=== PATIENT | female | born 1945 | race Caucasian/White ===

== ENCOUNTER 2019-06-09 08:32 | Emergency (ER) | payer MEDICARE, SELFPAY ==
--- NOTE | ~2019-06-09 | CT_ITS ---
EXAMINATION: CT chest wo con DATE: 06/09/2019 10:16 INDICATION: Shortness of breath TECHNIQUE: Computed tomography (CT) of the chest was performed without intravenous contrast. Addition al 3D reconstructions utilizing coronal maximum intensity projection (MIP) were performed. Automated exposure control and iterative reconstruction technique were employed. The dose-length product was 74 4.74 mGy-cm. COMPARISON: None FINDINGS: There are scattered mild linear atelectasis throughout both lungs along with scattered patchy regions of central and peripheral groundglass opacity throughout both lungs. No smooth septal line thickenin g to suggest pulmonary edema. No pleural effusion or pneumothorax. Heart size is normal. Atherosclero tic coronary artery calcifications. No pericardial effusion. Thoracic aorta is normal in caliber. No pathologically enlarged thoracic spondylosis. Cholelithiasis. 2 mm nonobstructing stone at a lower po le calyx of the left kidney. Mild lumbar dextroscoliosis with severe left-sided disc height loss with sclerotic degenerative endplate changes at L1-L2. Mild to moderate thoracic spondylosis. Severe righ t and moderate left glenohumeral osteoarthritis. IMPRESSION: 1. Patchy bilateral groundglass opacities throughout both lungs most concerning for pneumonia includi ng COVID-19 for which this would be a typical pattern. Differential includes pulmonary edema. Pulmona ry infarcts would be expected of a more peripheral wedge-shaped predominance. 2. Cholelithiasis. 3. Nonobstructing left nephrolithiasis. Reviewed, dictated and finalized at location A. IMPRESSION: 1. Patchy bilateral groundglass opacities throughout both lungs most concerning for pneumonia including COVID-19 for which this would be a typical pattern. Di fferential includes pulmonary edema. Pulmonary infarcts would be expected of a more peripheral wedge-shaped predominance. 2. Cholelithiasis. 3. Nonobstructing left nephrolithiasis.
--- NOTE | ~2019-06-09 | XR_ITS ---
EXAMINATION: XR chest 1V portable DATE: 06/09/2019 09:08 INDICATION: Shortness of breath. Persistent weakness. TECHNIQUE: frontal view of the chest was obtained. COMPARISON: Chest radiograph dated 09/21/2009 FINDINGS: Mild linear discoid atelectasis at the bilateral mid lung zones. Opacities at the medial right lung b ase which could represent atelectasis with bronchovascular crowding although differential includes pn eumonia. No pleural effusion or pneumothorax. The cardiomediastinal silhouette is normal. Mild thorac ic spondylosis. IMPRESSION: 1. Opacities at the right lung base which could represent atelectasis and bronchovascular crowding al though differential includes pneumonia. Reviewed, dictated and finalized at location A. IMPRESSION: 1. Opacities at the right lung base which could represent atelectasis and bronc hovascular crowding although differential includes pneumonia.
[2019-06-09 08:38] VITALS: BP 141/70; PULSE 110; RESP 23; TEMP 37.4; O2SAT 94
--- NOTE | 2019-06-09 08:43 | ECG_ITS ---
Measurements Intervals [place] Rate: 103 P: 64 [place]: 179 QRS: -20 QRSD: 150 T: 91 QT: 366 QTc: 480 Interpretive Statements SINUS TACHYCARDIA LEFT BUNDLE BRANCH BLOCK ABNORMAL ECG Electronically Signed On 06-09-2019 11:40:40 CDT by Lion Cadena D.O.
[2019-06-09 08:51] VITALS: PULSE 90
--- NOTE | 2019-06-09 09:01 | ED.SOB ---
HPI - SOB/Dyspnea General Chief Complaint: Shortness of Breath/Dyspnea Stated Complaint: SOB while quarentined Time Seen by Provider: 06/09/19 08:44 Source: patient and RN notes reviewed Mode of arrival: ambulatory Limitations: no limitations History of Present Illness HPI Narrative: A 74 y/o female has presented to the ED with c/o SOB that began yesterday and worsened over night. She states she has associated VALENCIA, chills, myalgia, and diarrhea. Pt denies N/V, rhinorrhea, and a sore throat. Pt notes that she has a cough once or twice a day with phlegm production. Pt notes that she, her , and her daughter have all been sick for the past 2.5 weeks. She was tested for the flu and strep and all came back negative. She notes that her and daughter both have fevers and coughs. She states they both use Albuterol inhalers, but she has not used their inhalers. She notes a h/o RA, right knee replacement, toe joint surgery, breast biopsy, HTN, and GERD. Pt denies a h/o smoking, drinking, drugs, or blood clots. She also denies any recent travel or sicks contacts other than her family. MD elicited complaint: shortness of breath Pertinent past history: other (RA) Onset (ago): day(s) (1) Context: recent illness (2.5 weeks) Known history of: other (HTN, GERD, RA) Associated symptoms: cough (1-2 times a day with phlegm production) and other (VALENCIA, myalgia, diarrhea, and chills) Related Data Home Medications Medication Instructions Recorded Confirmed acetaminophen [Tylenol Arthritis 650 mg PO Q12H 03/20/19 03/20/19 Pain] potassium chloride meq PO 06/09/19 Allergies Allergy/AdvReac Type Severity Reaction Status Date / Time hydroxychloroquine Allergy Unknown Diarrhea Verified 06/09/19 08:52 Sulfa (Sulfonamide Allergy Unknown Hives Verified 06/09/19 08:52 Antibiotics) Contrast Media Allergy Intermediate Confusion Uncoded 06/09/19 08:52 Review of Systems Review of Systems: All systems reviewed & are unremarkable except as noted in HPI and below Constitutional: Constitutional: Reports chills ENT: Denies sore throat and Denies other (rhinorrhea) Respiratory: Respiratory: Reports cough (1-2 times a day with phlegm production) and Reports dyspnea Gastrointestinal: Gastrointestinal: Reports diarrhea, Denies nausea and Denies vomiting Musculoskeletal: Musculoskeletal: Reports myalgias Neurologic: Reports headache(s) PMFSH Past Medical History Medical History (Updated 06/09/19 @ 11:19 by Rigo Kulkarni MD) Contact dermatitis GERD without esophagitis Hyperlipidemia Hypertension IBS (irritable bowel syndrome) Lymphedema Rheumatoid arthritis UTI (urinary tract infection) Surgical History Surgical History (Updated 06/09/19 @ 09:21 by Diego Vu) H/O breast biopsy left H/O toe surgery (~2005) Right great toe joint H/O tubal ligation History of orthopedic surgery left foot History of total right knee replacement (~2007) Social History Social History Smoking status: Never smoker Second hand tobacco smoke exposure: No Alcohol intake: current Gender identity (if verbalized by the patient): Female Exam Narrative: Exam Narrative: GENERAL: Well-appearing, well-nourished, and in no acute distress. HEAD: Normocephalic, atraumatic. ENT: Mucous membranes moist. CHEST: Clear to auscultation. No respiratory distress. HEART: Tachycardic and regular. Normal peripheral pulses. ABDOMEN: Soft, nontender, nondistended. EXTREMITIES: Normal range of motion. Nonpitting edema. SKIN: Warm, dry, no rash. NEURO: Alert and oriented x3. Course Course Emergency Course: Pts CT concerning for covid. Will tx with albuterol and z-salvador outpatient. Does not meet threshold for state testing but we will send COVID test to a standard lab. Discussed treatment plan. Patient resting comfortably currently pressure 133/55 mmHg, pulse oximetry at 98% on room air. Respiratory rate 1
[2019-06-09 09:13] LABS: Basophils Percent Auto 0.2 % (0.2-1.2); Eosinophils Percent Auto 0.2 % (0-4.4); Hematocrit 43.5 % (37.0-47.0); Hemoglobin 14.1 g/dL (12.0-15.0); Immature Granulocyte Absolute 0.03 K/mm3 (0.00-0.031); Immature Granulocyte Percent A 0.7 % (0-0.5); Lymphocytes Absolute Auto 1.46 K/mm3 (0.9-3.2); Lymphocytes Percent Auto 34.1 % (18.3-44.2); Mean Corpuscular HGB Conc 32.4 g/dl (32-36); Mean Corpuscular Hemoglobin 28.8 pg (26-34); Mean Corpuscular Volume 88.8 fl (80-100); Mean Platelet Volume 11.1 fl (7.4-10.4); Monocytes Absolute Auto 0.4 K/mm3 (0.1-0.6); Monocytes Percent Auto 9.8 % (2.6-8.5); Neutrophils Absolute Auto 2.4 K/mm3 (1.3-6.7); Platelet Count Result 220 k/mm3 (150-375); Red Cell Distribution Width 13.2 % (11.5-14.5); White Blood Count 4.3 K/mm3 (4.5-10.0)
[2019-06-09 09:30] LABS: Blood Urea Nitrogen 20 mg/dL (7-17); Calcium 9.2 mg/dL (8.4-10.2); Carbon Dioxide 27 mmol/L (22-30); Chloride 101 mmol/L (98-107); Estimated CRCL calculation 56 ml/min; Estimated Glomerular Filt Rate 55; Glucose 117 mg/dL (65-105); Potassium 3.4 mmol/L (3.4-5.0); Sodium 135 mmol/L (137-145)
[2019-06-09 09:39] VITALS: BP 136/67; PULSE 81; RESP 16; O2SAT 96
[2019-06-09 09:47] LABS: D Dimer 1.02 ug/mL (<0.48)
[2019-06-09 09:52] LABS: NT Pro B Type Natriuretic Pept 331 PG/ML (5-100)
[2019-06-09 09:58] VITALS: BP 132/84; PULSE 90; RESP 22; O2SAT 97
[2019-06-09 10:01] LABS: Alanine Aminotransferase 64 U/L (4-35); Alkaline Phosphatase 163 U/L (38-126); Aspartate Amino Transferase 79 U/L (14-36); Bilirubin,Total 0.5 mg/dL (0.2-1.3)
[2019-06-09 10:54] VITALS: BP 130/87; PULSE 84; RESP 20; O2SAT 99
[2019-06-09 11:40] VITALS: BP 133/61; PULSE 84; RESP 20; O2SAT 97
[2019-06-17 13:34] LABS: SARS-CoV-2 RNA: Positive
[2019-06-17 13:35] LABS: Pan-SARS RNA: Positive
== END 2019-06-09 11:43 | disposition home or self-care (01) ==
PROVIDERS: Emergency Provider Emergency Medicine; PCP Nurse Practitioner Family
DX: J12.89 Other viral pneumonia (principal); B97.29 Other coronavirus as the cause of diseases classified elsewhere; K21.9 Gastro-esophageal reflux disease without esophagitis; E78.5 Hyperlipidemia, unspecified; I10 Essential (primary) hypertension; M06.9 Rheumatoid arthritis, unspecified; Z96.651 Presence of right artificial knee joint
CPT/HCPCS: 36415; 71045; 71250; 80048; 80076; 83880; 85025; 85380; 87635; 93005; 99284; U0002

== ENCOUNTER 2019-09-07 11:38 | Outpatient (CLI) | payer MEDICARE, SELFPAY ==
[2019-09-07 12:00] LABS: Hemoglobin 14.4 g/dL (12.0-15.0); Mean Corpuscular HGB Conc 32.7 g/dl (32-36); Mean Corpuscular Hemoglobin 30.1 pg (26-34); Mean Corpuscular Volume 91.9 fl (80-100); Mean Platelet Volume 10.3 fl (7.4-10.4); Platelet Count Result 292 k/mm3 (150-375); Red Blood Count 4.79 M/mm3 (4.2-5.4); Red Cell Distribution Width 13.3 % (11.5-14.5); White Blood Count 7.4 K/mm3 (4.5-10.0)
[2019-09-07 12:18] LABS: Alanine Aminotransferase 22 U/L (4-35); Albumin Level 4.3 g/dL (3.5-5.1); Alkaline Phosphatase 81 U/L (38-126); Aspartate Amino Transferase 26 U/L (14-36); Bilirubin,Total 0.3 mg/dL (0.2-1.3); Blood Urea Nitrogen 24 mg/dL (7-17); Calcium 9.6 mg/dL (8.4-10.2); Carbon Dioxide 28 mmol/L (22-30); Chloride 102 mmol/L (98-107); Cholesterol 226 mg/dL (0-200); Estimated Glomerular Filt Rate 55; Glucose 117 mg/dL (65-105); HDL Direct 47 mg/dL; Potassium 4.2 mmol/L (3.4-5.0); Sodium 137 mmol/L (137-145); Triglycerides 215 mg/dL (<150)
[2019-09-07 12:28] LABS: LDL Cholesterol Direct 124 mg/dL
== END 2019-09-07 11:39 | disposition home or self-care (01) ==
PROVIDERS: PCP Nurse Practitioner Family; Visit Provider Nurse Practitioner Family
DX: I10 Essential (primary) hypertension (principal)
CPT/HCPCS: 36415; 80053; 80061; 85027

== ENCOUNTER 2020-05-10 16:03 | Outpatient (CLI) | payer MEDICARE, SELFPAY | END 2020-05-10 16:04 | disposition home or self-care (01) | LOC: ANHCOVIDVC 16:04 | PROVIDERS: PCP Nurse Practitioner Family; Visit Provider Nurse Practitioner Family | DX: Z23 Encounter for immunization (principal) | CPT/HCPCS: 0001A; 91300 ==

== ENCOUNTER 2020-05-31 16:04 | Outpatient (CLI) | payer MEDICARE, SELFPAY | END 2020-05-31 16:05 | disposition home or self-care (01) | LOC: ANHCOVIDVC 16:04 | PROVIDERS: PCP Nurse Practitioner Family | DX: Z23 Encounter for immunization (principal) | CPT/HCPCS: 0002A; 91300 ==

== ENCOUNTER 2021-09-18 12:55 | Outpatient (CLI) | payer MEDICARE, SELFPAY ==
[2021-09-18 14:02] LABS: Basophils Absolute Auto 0.1 K/mm3 (0.0-0.1); Basophils Percent Auto 0.7 % (0.2-1.2); Eosinophils Absolute Auto 0.2 K/mm3 (0-0.3); Eosinophils Percent Auto 1.9 % (0-4.4); Hemoglobin 14.2 g/dL (12.0-15.0); Immature Granulocyte Absolute 0.06 K/mm3 (0.00-0.031); Immature Granulocyte Percent A 0.7 % (0-0.5); Lymphocytes Absolute Auto 2.41 K/mm3 (0.9-3.2); Lymphocytes Percent Auto 27.5 % (18.3-44.2); Mean Corpuscular HGB Conc 31.6 g/dl (32-36); Mean Corpuscular Hemoglobin 30.2 pg (26-34); Mean Corpuscular Volume 95.7 fl (80-100); Mean Platelet Volume 10.9 fl (7.4-10.4); Monocytes Absolute Auto 0.6 K/mm3 (0.1-0.6); Monocytes Percent Auto 7.2 % (2.6-8.5); Neutrophils Absolute Auto 5.4 K/mm3 (1.3-6.7); Platelet Count Result 322 k/mm3 (150-375); Red Cell Distribution Width 13.5 % (11.5-14.5); White Blood Count 8.8 K/mm3 (4.5-10.0)
[2021-09-18 14:12] LABS: Alanine Aminotransferase 23 U/L (6-35); Albumin Level 4.7 g/dL (3.5-5.1); Alkaline Phosphatase 108 U/L (38-126); Anion Gap 9 mmol/L (8-16); Aspartate Amino Transferase 38 U/L (14-36); Bilirubin,Total 0.5 mg/dL (0.2-1.3); Blood Urea Nitrogen 26 mg/dL (7-17); Calcium 9.6 mg/dL (8.4-10.2); Carbon Dioxide 25 mmol/L (22-30); Chloride 103 mmol/L (98-107); Cholesterol 233 mg/dL (0-200); Estimated Glomerular Filt Rate 49; Glucose 109 mg/dL (65-110); HDL Direct 45 mg/dL; Potassium 4.6 mmol/L (3.4-5.0); Sodium 137 mmol/L (137-145); Triglycerides 126 mg/dL (<150)
[2021-09-18 14:23] LABS: LDL Cholesterol Direct 134 mg/dL
[2021-09-18 16:55] LABS: Hemoglobin A1C 5.7 % (<5.7)
== END 2021-09-18 12:56 | disposition home or self-care (01) ==
LOC: ANHGOSHLAB 12:58
PROVIDERS: PCP Family Medicine; Visit Provider Nurse Practitioner Family
DX: E78.5 Hyperlipidemia, unspecified (principal); I10 Essential (primary) hypertension; R73.03 Prediabetes
CPT/HCPCS: 36415; 80053; 80061; 83036; 85025

== ENCOUNTER 2021-12-28 15:30 | Outpatient (RCR) | payer MEDICARE, SELFPAY ==
--- NOTE | 2021-11-30 15:40 | PTOPEVAL1 ---
Assessment and note entered by Clay Lozano, PT, DPT Evaluation Information Assessment Status Evaluation Diagnosis L knee pain, lymphedema, and recent falls Subjective Information Pt states she has L knee pain but d/t her weight and SOB she does not quality for a knee surgery and she does not feel like therapy will do anything to help so she does not even want to worry about it. She reports 1 fall in the last 6 months, she states her shoe got stuck and her wrist gave out on her, she did not have any injuries. She states she has decreased balance. She uses a rollator in the clinic today, she does not use this at home but reports being a furniture walker. She states she would like to be able to ascend a curb step. Pt reports she sleeping in a recliner and cannot lay flat or on her side d/t SOB, she has had this since she had Covid 2+ years ago. Reported Pain Level Pain Score 0: Self Report Assessment PT Clinical Summary Josefina is an inactive and deconditioned 76 y/o female who presents to therapy today with a diagnosis of L knee pain and a recent fall. Today she states there is no potential for her knees and back and to not even evaluation them. She also reports having Covid 2+ years ago and her SOB has persisted since then. Today she demonstrates decreased strength, LE muscles were not tested in the correct position d/t the patient being unable to lay down on her back or side. She demonstrates a decreased gait speed that is limited by reports of SOB and low back pain. She demonstrates decreased balance on the ARIAS, again it is questionable how many of these items were limited by SOB or pain. Skilled physical therapy services are indicated to try to get pt to participate in HEP, to improve strength, to improve endurance, and to promote increased independence with functional mobility. Plan of Care Interventions Neuro Re-education,Patient/Caregiver Educati, Therapeutic Activities,Therapeutic Exercise PT Services Indicated Yes Treatment Frequency and 2x/wk for 4 wks Duration These treatments will address the objective and functional deficits as defined above. The patient will be advanced safely and appropriately in order for the patient to progress towards his/her prior level of function. Additional exercises will be introduced and as well as a comprehensive home exercise program upon discharge, if needed, ?to ensure carryover of functional gains achieved in the clinic. This treatment plan has been reviewed and agreement upon by the patient.
--- NOTE | 2021-12-28 16:42 | PTOPDC ---
Assessment and note entered by Clay Lozano, PT, DPT Evaluation Information Assessment Status Discharge Diagnosis L knee pain, lymphedema, and recent falls Subjective Information Pt states she feels like she is getting better. She states when getting in/out of the shower she was able to hold onto the grab bar with only one UE and did not have to help lift her legs. She states her balance has also improved, she states she was not fearful of falls. She reports no falls in the last month. She states she knows her mobility might not look like everyone else but that she is improving. Reported Pain Level Pain Score 0: Self Report Assessment PT Clinical Summary Josefina presents to therapy today for her progress report following 5 visits of skilled therapy. Today she reports improvements in her strength and confidence levels. She continues to demonstrate decreased strength, balance, mobility, and endurance. However, she has improved her time to complete the TUG and 5xSTS. She still requires a seated rest break during the 2 min walk test d/ t SOB. While continuation of skilled physical therapy services are indicated pt would like to continue her exercises on her own at home. She was instructed to continue her HEP upon discharge and to follow up with her referring provider if needed. Plan of Care PT Services Indicated No Treatment Frequency and to be discharged Duration
== END 2022-01-02 13:24 | disposition home or self-care (01) ==
LOC: ANHGOSHPT 15:30
PROVIDERS: PCP Family Medicine; Visit Provider Nurse Practitioner Family
DX: M25.562 Pain in left knee (principal); I89.0 Lymphedema, not elsewhere classified; W19.XXXA Unspecified fall, initial encounter
CPT/HCPCS: 97110; 97112; 97161; 97530

== ENCOUNTER 2022-03-27 13:25 | Outpatient (CLI) | payer MEDICARE, SELFPAY ==
[2022-03-27 20:17] LABS: Alanine Aminotransferase 31 U/L (6-35); Albumin Level 3.9 g/dL (3.5-5.1); Alkaline Phosphatase 95 U/L (38-126); Anion Gap 4 mmol/L (8-16); Aspartate Amino Transferase 36 U/L (14-36); Bilirubin,Total 0.4 mg/dL (0.2-1.3); Blood Urea Nitrogen 27 mg/dL (7-17); Calcium 8.9 mg/dL (8.4-10.2); Carbon Dioxide 29 mmol/L (22-30); Chloride 105 mmol/L (98-107); Cholesterol 200 mg/dL (0-200); Estimated Glomerular Filt Rate > 60; Glucose 108 mg/dL (65-110); HDL Direct 44 mg/dL; Potassium 4.3 mmol/L (3.4-5.0); Sodium 138 mmol/L (137-145); Triglycerides 137 mg/dL (<150)
[2022-03-27 20:27] LABS: LDL Cholesterol Direct 109 mg/dL
[2022-03-27 20:49] LABS: Basophils Absolute Auto 0.1 K/mm3 (0.0-0.1); Basophils Percent Auto 0.7 % (0.2-1.2); Eosinophils Absolute Auto 0.2 K/mm3 (0-0.3); Eosinophils Percent Auto 3.1 % (0-4.4); Hematocrit 42.8 % (37.0-47.0); Hemoglobin 13.7 g/dL (12.0-15.0); Immature Granulocyte Absolute 0.04 K/mm3 (0.00-0.031); Immature Granulocyte Percent A 0.5 % (0-0.5); Lymphocytes Percent Auto 25.3 % (18.3-44.2); Mean Corpuscular Hemoglobin 30.4 pg (26-34); Mean Corpuscular Volume 94.9 fl (80-100); Mean Platelet Volume 11.2 fl (7.4-10.4); Monocytes Absolute Auto 0.6 K/mm3 (0.1-0.6); Monocytes Percent Auto 7.4 % (2.6-8.5); Neutrophils Absolute Auto 4.7 K/mm3 (1.3-6.7); Platelet Count Result 259 k/mm3 (150-375); Red Blood Count 4.51 M/mm3 (4.2-5.4); Red Cell Distribution Width 13.3 % (11.5-14.5); White Blood Count 7.5 K/mm3 (4.5-10.0)
[2022-03-29 11:20] LABS: Hemoglobin A1C 5.7 % (<5.7)
== END 2022-03-27 13:26 | disposition home or self-care (01) ==
LOC: ANHGOSHLAB 13:27
PROVIDERS: PCP Family Medicine; Visit Provider Nurse Practitioner Family
DX: I10 Essential (primary) hypertension (principal); R73.03 Prediabetes; E78.5 Hyperlipidemia, unspecified
CPT/HCPCS: 36415; 80053; 80061; 83036; 85025

== ENCOUNTER 2022-07-30 14:45 | Outpatient (RCR) | payer MEDICARE, SELFPAY ==
--- NOTE | 2022-05-15 11:59 | PTOPEVAL1 ---
Assessment and note entered by Octavia Bal, PT, CLT Evaluation Information Assessment Status Evaluation Diagnosis lymphedema R and L LE Onset Feb 2022 Reported Pain Level Pain Score Self Report Additional Pain Score Comments L knee pain due to OA & legs heavy 10/18 Assessment PT Clinical Summary Josefina has the diagnosis of R and L LE lymphedema. She has combination of lipedema- lymphedema. Her medical history includes: HTN, hernia without surgery, acid reflux, R TKR, L knee OA, obesity and always having big legs, without swelling over the tops of her feet. With the evaluation, her L LE is 71.9 cm larger than her R leg; both lower legs have papillomas and tissue changes, redness and fibrotic skin. Her L knee has decreased ROM due to the edema. Both thighs, knees and hips have adipose tissue with good color and mobility and her abdomen pannus does not have any fibrosis. Skilled PT services are indicated for complete decongestive therapy: multi layer compression wraps, manual lymph drainage, education for compression garment for her to obtain, self lymph drainage, leg exercises and intermittent compression pump. Plan of Care Interventions Intermittent Compression,Lymphedema Compression Pump ,Manual Lymph Drainage,Patient/Caregiver Education, Therapeutic Exercise PT Services Indicated Yes Treatment Frequency and 0-3x/wk for 7 weeks, due to availability of Duration therapist schedule to begin treatment These treatments will address the objective and functional deficits as defined above. The patient will be advanced safely and appropriately in order for the patient to progress towards his/her prior level of function. Additional exercises will be introduced and as well as a comprehensive home exercise program upon discharge, if needed, ?to ensure carryover of functional gains achieved in the clinic. This treatment plan has been reviewed and agreement upon by the patient.
--- NOTE | 2022-06-05 12:38 | PCPTNOTE ---
Pt's appointment on 06/04/22 was cancelled due to therapist being sick.
--- NOTE | 2022-06-22 14:57 | PCPTNOTE ---
pt called and canceled today's appt;
--- NOTE | 2022-07-02 15:01 | PTOPPROG ---
Assessment and note entered by Octavia Bal, PT, CLT Evaluation Information Assessment Status Progress Diagnosis lymphedema R and L LE Onset Feb 2022 Subjective Information Josefina reports: legs are much better, smaller; want to continue therapy; ordered the garment, should be in Wed or Thurs; Assessment PT Clinical Summary Josefina has received 15 PT sessions for R and L LE lymphedema. The L lower leg has been receiving the compression reduction garment to lower leg and foot. Compared to the initial evaluation: circumferential measurement of the L LE has decreased by 92.2 cm and R LE has increased by 9.1 cm; skin integrity has improved with both lower legs--L no longer has papillomas and only slight redness over anterior andrews; R leg with anterior andrews papillomas and slight redness; The goals were partially achieved. She has ordered a compression calf high garment for L leg, which should be in this week. When it is received, will assess it and start the reduction garment for her R lower leg. Continue Lymphedema treatment. Plan of Care Interventions Intermittent Compression pump,Lymphedema Compression Wrap ,Manual Lymph Drainage,Patient/Caregiver Education, Therapeutic Activities,Therapeutic Exercise PT Services Indicated Yes Treatment Frequency and 2x/wk for 4 weeks Duration These treatments will address the objective and functional deficits as defined above. The patient will be advanced safely and appropriately in order for the patient to progress towards his/her prior level of function. Additional exercises will be introduced and as well as a comprehensive home exercise program upon discharge, if needed, ?to ensure carryover of functional gains achieved in the clinic. This treatment plan has been reviewed and agreement upon by the patient.
--- NOTE | 2022-07-09 10:22 | PCPTNOTE ---
Mrs. Marie has received 6 weeks of lymphedema therapy: refer to the reevaluation/progress report dated 07-02-22. Her treatment has included: compression to her legs with multilayer compression wraps and velcro reduction kit; LE exercises, intermittent compression pump over her legs, with BIO Tab and manual lymph drainage by CLT. She has been educated on self manual lymph drainage, elevation of legs, home exercises for her legs, self care with skin monitoring. Her family is assisting her with her compression and home tasks. Refer to the clinical summary of the report--she continues to have edema over her knees and thighs, with decreased mobility due to other medical issues, using a wheelchair to dept. She continues to have enlarged abdomen with truncal edema. Devora would benefit from a home [employer] Flexitouch intermittent compression pump with trunk component to assist with managing her chronic lymphedema, clearing her thighs, hips and trunk.
--- NOTE | 2022-07-30 15:48 | PTOPDC ---
Assessment and note entered by Octavia Bal, PT,CLT Evaluation Information Assessment Status Discharge Diagnosis lymphedema R and L LE Onset Feb 2022 Subjective Information Josefina reports: compression knee high socks are comfortable; her daughter is helping her with them; using the velcro compression at night, have one, so switch from R leg/ L leg; have been doing her self massage, elevating legs and leg exercises ; awaiting for the home pump approval; have had a busy day---company at her house, playing with children; Reported Pain Level Pain Score Self Report Additional Pain Score Comments L knee arthritis pain 4/10; no heaviness or aching in legs Assessment PT Clinical Summary Josefina has received 22 PT sessions for R and L LE lymphedema. Compared to the last reevaluation: skin integrity has improved with less redness on L LE and no redness on R LE; does not have any fibrotic tissue; circumferential measurement on R has decreased 13.3 cm and L has increased 5 cm--- possibly due to going from compression wraps to the 20-30 mmHg garment, warm weather--80' today and she has been more active with legs down the past few days with home visitors. Education completed for self care--self MLD, leg exercises, use of velcro garment at night for compression, compression garments. During therapy sessions, the BIO Tab compression pump was used with the one leg component; it is not effective for management of pt's lymphedema over her thighs and trunk--she continues to have edema over thighs and trunk. Recommend home [employer] Flexitouch, to improve the lymph flow over the thighs and trunk to clear the lymph fluid. Discharge PT services. Plan of Care PT Services Indicated No
== END 2022-07-31 08:38 | disposition home or self-care (01) ==
LOC: ANHPT 14:45
PROVIDERS: PCP Family Medicine; Visit Provider Nurse Practitioner Family
DX: I89.0 Lymphedema, not elsewhere classified (principal)
CPT/HCPCS: 29581; 97016; 97140; 97162

== ENCOUNTER 2022-09-27 13:48 | Outpatient (CLI) | payer MEDICARE, SELFPAY ==
[2022-09-27 19:16] LABS: Basophils Absolute Auto 0.1 K/mm3 (0.0-0.1); Basophils Percent Auto 0.7 % (0.2-1.2); Eosinophils Absolute Auto 0.2 K/mm3 (0-0.3); Eosinophils Percent Auto 3.2 % (0-4.4); Hemoglobin 13.4 g/dL (12.0-15.0); Immature Granulocyte Absolute 0.03 K/mm3 (0.00-0.031); Immature Granulocyte Percent A 0.4 % (0-0.5); Lymphocytes Absolute Auto 1.89 K/mm3 (0.9-3.2); Lymphocytes Percent Auto 27.9 % (18.3-44.2); Mean Corpuscular HGB Conc 31.9 g/dl (32-36); Mean Corpuscular Hemoglobin 29.8 pg (26-34); Mean Corpuscular Volume 93.5 fl (80-100); Mean Platelet Volume 11.5 fl (7.4-10.4); Monocytes Absolute Auto 0.6 K/mm3 (0.1-0.6); Monocytes Percent Auto 8.7 % (2.6-8.5); Neutrophils Percent Auto 59.1 % (45.5-73.1); Platelet Count Result 268 k/mm3 (150-375); Red Blood Count 4.49 M/mm3 (4.2-5.4); Red Cell Distribution Width 13.5 % (11.5-14.5); White Blood Count 6.8 K/mm3 (4.5-10.0)
[2022-09-27 19:45] LABS: Alanine Aminotransferase 22 U/L (6-35); Alkaline Phosphatase 95 U/L (38-126); Anion Gap 5 mmol/L (8-16); Aspartate Amino Transferase 34 U/L (14-36); Bilirubin,Total 0.5 mg/dL (0.2-1.3); Blood Urea Nitrogen 27 mg/dL (7-17); Calcium 9.3 mg/dL (8.4-10.2); Carbon Dioxide 28 mmol/L (22-30); Chloride 107 mmol/L (98-107); Cholesterol 193 mg/dL (0-200); Estimated Glomerular Filt Rate 54; Glucose 97 mg/dL (65-110); HDL Direct 40 mg/dL; Potassium 4.4 mmol/L (3.4-5.0); Sodium 140 mmol/L (137-145); Triglycerides 147 mg/dL (<150)
[2022-09-27 19:57] LABS: LDL Cholesterol Direct 107 mg/dL
[2022-09-27 23:48] LABS: Hemoglobin A1C 5.9 % (<5.7)
== END 2022-09-27 13:49 | disposition home or self-care (01) ==
LOC: ANHGOSHLAB 13:53
PROVIDERS: PCP Family Medicine; Visit Provider Nurse Practitioner Family
DX: R73.03 Prediabetes (principal); I10 Essential (primary) hypertension; E78.5 Hyperlipidemia, unspecified
CPT/HCPCS: 36415; 80053; 80061; 83036; 84443; 85025

== ENCOUNTER 2023-01-07 10:03 | Emergency (ER) | payer MEDICARE, SELFPAY ==
--- NOTE | ~2023-01-07 | XR_ITS ---
EXAMINATION: XR chest 2V DATE: 01/07/2023 10:58 INDICATION: Chest pain. TECHNIQUE: Frontal and lateral views of the chest were obtained on 3 radiographs. COMPARISON: Chest single view 06/09/2019, chest CT 06/09/2019 FINDINGS: There is mild atelectasis versus scarring in the mid and lower lung zones. No pleural effus ion or pneumothorax. The heart size is normal. IMPRESSION: 1. Mild atelectasis versus scarring in the mid and lower lung zones. Reviewed, dictated and finalized at location E.
[2023-01-07 10:11] VITALS: BP 166/47; PULSE 79; RESP 22; TEMP 36.7; O2SAT 97
--- NOTE | 2023-01-07 10:11 | ECG_ITS ---
Measurements Intervals [place] Rate: 78 P: 46 [place]: 198 QRS: -17 QRSD: 154 T: 106 QT: 401 QTc: 458 Interpretive Statements SINUS RHYTHM WITH SINUS ARRHYTHMIA LEFT BUNDLE BRANCH BLOCK [120+ ms QRS DURATION, 80+ ms Q/S IN V1/V2, 85+ ms R IN I/aVL/V5/V6] ABNORMAL ECG COMPARED TO ECG 06/09/2019 08:43:07 SINUS RHYTHM NOW PRESENT SINUS ARRHYTHMIA NOW PRESENT Electronically Signed On 01-07-2023 11:13:02 CDT by Blade Oshea M.D.
[2023-01-07 10:21] VITALS: O2SAT 97
[2023-01-07 10:29] LABS: Basophils Percent Auto 0.5 % (0.2-1.2); Eosinophils Absolute Auto 0.2 K/mm3 (0-0.3); Eosinophils Percent Auto 2.5 % (0-4.4); Hemoglobin 13.7 g/dL (12.0-15.0); Immature Granulocyte Absolute 0.03 K/mm3 (0.00-0.031); Immature Granulocyte Percent A 0.4 % (0-0.5); Lymphocytes Absolute Auto 2.24 K/mm3 (0.9-3.2); Lymphocytes Percent Auto 27.1 % (18.3-44.2); Mean Corpuscular HGB Conc 31.1 g/dl (32-36); Mean Corpuscular Hemoglobin 29.7 pg (26-34); Mean Corpuscular Volume 95.4 fl (80-100); Mean Platelet Volume 10.8 fl (7.4-10.4); Monocytes Absolute Auto 0.7 K/mm3 (0.1-0.6); Monocytes Percent Auto 8.5 % (2.6-8.5); Neutrophils Absolute Auto 5.1 K/mm3 (1.3-6.7); Platelet Count Result 283 k/mm3 (150-375); Red Blood Count 4.61 M/mm3 (4.2-5.4); Red Cell Distribution Width 13.2 % (11.5-14.5); White Blood Count 8.3 K/mm3 (4.5-10.0)
[2023-01-07 10:40] LABS: INR 1.1; Partial Thromboplastin Time 28.5 SECONDS (22.3-36.8); Prothrombin Time 14.8 Seconds (11.1-14.7)
[2023-01-07 10:42] LABS: Alanine Aminotransferase 19 U/L (6-35); Albumin Level 4.4 g/dL (3.5-5.1); Alkaline Phosphatase 99 U/L (38-126); Anion Gap 7 mmol/L (8-16); Aspartate Amino Transferase 26 U/L (14-36); Bilirubin,Total 0.6 mg/dL (0.2-1.3); Blood Urea Nitrogen 19 mg/dL (7-17); Calcium 9.6 mg/dL (8.4-10.2); Carbon Dioxide 26 mmol/L (22-30); Chloride 104 mmol/L (98-107); Estimated CRCL calculation 66 ml/min; Estimated Glomerular Filt Rate > 60; Glucose 132 mg/dL (65-110); Lipase 124 U/L (23-300); Potassium 3.8 mmol/L (3.4-5.0); Sodium 137 mmol/L (137-145)
[2023-01-07 10:52] LABS: Troponin I < 0.012 ng/mL (0.000-0.034)
--- NOTE | 2023-01-07 11:47 | ED.ARRPALP ---
HPI - Arrhythmia/Palpitations General Chief Complaint: Arrhythmia/Palpitations Stated Complaint: abnormal HR Time Seen by Provider: 01/07/23 11:08 History of Present Illness HPI narrative: This is a 77-year-old female, with history of lymphedema, who presents to the emergency department complaining of intermittent palpitations for the past several days. The patient states there is no obvious pattern to the palpitations. She feels her heart fluttering. She denies associated pain, shortness of breath, lightheadedness or loss of consciousness. She denies any recent change in medications or illness. Related Data Allergies Allergy/AdvReac Type Severity Reaction Status Date / Time hydroxychloroquine Allergy Unknown Diarrhea Verified 01/07/23 10:22 Sulfa (Sulfonamide Allergy Unknown Hives Verified 01/07/23 10:22 Antibiotics) Contrast Media Allergy Intermediate Confusion Uncoded 01/07/23 10:22 Review of Systems Review of Systems: CONSTITUTIONAL: Denies fever, chills, or sweats. CARDIOVASCULAR: Palpitations, chronic bilateral lower extremity edema denies chest pain RESPIRATORY: Denies cough or dyspnea. GASTROINTESTINAL: Denies abdominal pain, nausea, vomiting, or diarrhea. GENITOURINARY: Denies dysuria or hematuria. SKIN: Denies rash or itching. MUSCULOSKELETAL: Denies back pain, joint pain, or myalgia. NEUROLOGIC: Denies headache, numbness, dizziness, or weakness. PSYCHIATRIC: Denies anxiety or depression. [facility] Past Medical History Medical History Contact dermatitis GERD without esophagitis Heart murmur Hyperlipidemia Hypertension IBS (irritable bowel syndrome) Lymphedema Rheumatoid arthritis UTI (urinary tract infection) Surgical History Surgical History H/O breast biopsy left H/O toe surgery (~2005) Right great toe joint H/O tubal ligation History of orthopedic surgery left foot History of total right knee replacement (~2007) Family History Family History Mother Family history of rheumatoid arthritis Sibling Family history of rheumatoid arthritis Father Family history of anemia, Onset Age: 93 Grandparent Family history of malignant neoplasm of ovary, Onset Age: 73 Other Diabetes mellitus Hypertension Social History Social History Smoking status: Never smoker Tobacco type: cigarettes Second hand tobacco smoke exposure: No Alcohol intake: current Substance use: never Substance use type: does not use Lack of Transportation: No Lack of Food: Never True Current Housing: I Have Housing Concerned About Future Housing: No Difficulty Paying Gas/Electric Bills: No Difficulty Paying for Meds: No Currently Unemployed: No Education: Associate Degree Difficulty w/ Childcare or Family Care: No Living arrangements: with family Occupation/Education: retired Gender identity (if verbalized by the patient): Female Sexual Orientation (if Verbalized by the Patient): Straight or Heterosexual Agree to blood products: Yes Exam Narrative: GENERAL: Well-developed, well-nourished, and in no acute distress. HEAD: Normocephalic, atraumatic. EYES: PERRLA and EOMI. ENT: Mucous membranes moist. Oropharynx without tonsillar hypertrophy exudate or other lesions. NECK: Supple. No JVD CHEST: Clear to auscultation. No respiratory distress. No wheezes rales or rhonchi HEART: Regular rate and rhythm. No murmur heard. Normal peripheral pulses. ABDOMEN: Soft, nontender, nondistended, normal active bowel sounds. EXTREMITIES: Normal range of motion. Bilateral lower extremity, edema consistent with lymphedema SKIN: Warm, dry, no rash. NEURO: Alert and oriented x3. Moving all 4 limbs purposefully. PSYCH: Normal mood and affect. Course Course Emerg
[2023-01-07 12:24] VITALS: BP 136/63; PULSE 76; RESP 18; O2SAT 98
== END 2023-01-07 12:25 | disposition home or self-care (01) ==
PROVIDERS: Emergency Provider Preventive Medicine Aerospace Medicine; PCP Family Medicine
DX: R00.2 Palpitations (principal); I10 Essential (primary) hypertension; E78.5 Hyperlipidemia, unspecified; M06.9 Rheumatoid arthritis, unspecified; K21.9 Gastro-esophageal reflux disease without esophagitis
CPT/HCPCS: 36415; 71046; 80053; 83690; 84484; 85025; 85610; 85730; 93005; 99284

== ENCOUNTER 2023-04-04 09:29 | Outpatient (CLI) | payer MEDICARE, SELFPAY ==
[2023-04-04 13:40] LABS: Basophils Absolute Auto 0.1 K/mm3 (0.0-0.1); Basophils Percent Auto 0.9 % (0.2-1.2); Eosinophils Absolute Auto 0.4 K/mm3 (0-0.3); Eosinophils Percent Auto 5.9 % (0-4.4); Hematocrit 41.3 % (37.0-47.0); Immature Granulocyte Absolute 0.01 K/mm3 (0.00-0.031); Immature Granulocyte Percent A 0.2 % (0-0.5); Lymphocytes Absolute Auto 1.81 K/mm3 (0.9-3.2); Lymphocytes Percent Auto 27.5 % (18.3-44.2); Mean Corpuscular HGB Conc 31.5 g/dl (32-36); Mean Corpuscular Hemoglobin 29.6 pg (26-34); Mean Corpuscular Volume 94.1 fl (80-100); Mean Platelet Volume 11.2 fl (7.4-10.4); Monocytes Absolute Auto 0.5 K/mm3 (0.1-0.6); Monocytes Percent Auto 7.8 % (2.6-8.5); Neutrophils Absolute Auto 3.8 K/mm3 (1.3-6.7); Neutrophils Percent Auto 57.7 % (45.5-73.1); Platelet Count Result 254 k/mm3 (150-375); Red Blood Count 4.39 M/mm3 (4.2-5.4); Red Cell Distribution Width 13.1 % (11.5-14.5); White Blood Count 6.6 K/mm3 (4.5-10.0)
[2023-04-04 14:13] LABS: Alanine Aminotransferase 18 U/L (6-35); Albumin Level 3.7 g/dL (3.5-5.1); Alkaline Phosphatase 91 U/L (38-126); Anion Gap 8 mmol/L (8-16); Aspartate Amino Transferase 35 U/L (14-36); Bilirubin,Total 0.5 mg/dL (0.2-1.3); Blood Urea Nitrogen 23 mg/dL (7-17); Carbon Dioxide 28 mmol/L (22-30); Chloride 104 mmol/L (98-107); Cholesterol 183 mg/dL (0-200); Estimated Glomerular Filt Rate 54; Glucose 139 mg/dL (65-110); HDL Direct 35 mg/dL; Sodium 140 mmol/L (137-145); Triglycerides 194 mg/dL (<150)
[2023-04-04 14:24] LABS: LDL Cholesterol Direct 102 mg/dL
== END 2023-04-04 09:30 | disposition home or self-care (01) ==
PROVIDERS: PCP Family Medicine; Visit Provider Nurse Practitioner Family
DX: Z00.00 Encounter for general adult medical examination without abnormal findings (principal); E78.5 Hyperlipidemia, unspecified; R73.03 Prediabetes; I10 Essential (primary) hypertension
CPT/HCPCS: 36415; 80053; 80061; 83036; 84443; 85025

== ENCOUNTER 2024-11-17 10:01 | Outpatient (CLI) | payer MEDICARE, SELFPAY ==
--- OUTSIDE RECORDS SUMMARY | 2024-11-17 11:22 | XMS_ITS | Clinical Summary ---
Author Organization [facility] Address [address] [place] [address] Care Team Providers Care Material Processor Name Role Phone ArjunAlbaniaDayanna APRN-MEDICAL LEGAL INVESTIGATOR Primary Care Provider Source Comments [facility],non-owned Affiliates and Associated Physician Practices is amultiple site organization consisting of ambulatory clinics and hospital sitesin [place], [place], [place] and [place]. This disclosure is being madepursuant to the Care Everywhere program and may not contain all information available regarding this patient. Last updated 17.[facility] Allergies Active Allergy Reactions Criticality Noted Date Comments Sulfamethoxazole W-Trimethoprim Urticaria Medium 09/2019 Hydroxychloroquine Sulfate Diarrhea 0 Severe stomach issues Immunizations Immunization Administration Dates Next Due INFLUENZA VACCINE, HIGH-DOSE , QUADR. (FLUZONE HIGH-DOSE QUADRIVALENT; 65Y+), 0.7 ML ([id number]) 12/16/2019 Social History Tobacco Use Types Packs/Day Years Used Date Smoking Tobacco: Never Assessed Comments Unknown Sex and Gender Information Value Date Recorded Sex Assigned at Not on file Legal Sex Female 11:14 AM CDT Gender Identity Not on file Sexual Orientation Not on file Plan of Treatment Health Maintenance Due Date Last Done Comments BONE DENSITY TESTING 1945 HEPATITIS C SCREENING 01/05/1965 DTAP/TDAP/TD VACCINES (1 - Tdap) 1966 PNEUMOCOCCAL VACCINE 50+ (1 of 1 - PCV) 1997 ZOSTER VACCINE (1 of 2) 1997 Respiratory Syncytial Virus (RSV) Vaccine Pt: or over 60 yrs (1 - 1-dose 75+ series) 2022 COVID-19 VACCINE ( - 2023-2 5 season) 2023 DEPRESSION SCREENING 03/11/2024 INFLUENZA VACCINE (#1) 2024 12/16/2019 HEPATITIS B VACCINE Aged Out No longe r eligible based on patient's age to complete this topic HIB VACCINE Aged Out No longer eligi ble based on patient's age to complete this topic HPV VACCINE Aged Out No longer eligi ble based on patient's age to complete this topic MENINGOCOCCAL (Group B) VACC INE SHARED DECISION-MAKING Aged Out No longer eligibl e based on patient's age to complete this topic MENINGOCOCCAL GROUPS A/C/Y/W VACCINE Aged Out No longer eligible b ased on patient's age to complete this topic Insurance [employer] MANAGED MEDICARE ADV Care Teams Material Processor Relationship Specialty Start Date End Date Florina Díaz, SEVERO-JIMY [address] [place] [id number] PCP - General Nurse Practitioner Family 12/16/19
[2024-11-17 13:08] LABS: Hematocrit 42.4 % (37.0-47.0); Hemoglobin 13.4 g/dL (12.0-15.0); Immature Granulocyte Percent A 0.4 % (0-0.5); Lymphocytes Absolute Auto 1.82 K/mm3 (0.9-3.2); Mean Corpuscular HGB Conc 31.6 g/dl (32-36); Mean Corpuscular Hemoglobin 30.1 pg (26-34); Mean Corpuscular Volume 95.3 fl (80-100); Nucleated Red Blood Cells Absolute Auto 0.000 K/mm3 (0.0-0.012); Nucleated Red Blood Cells Perc 0.0 % (0.0-0.2); Platelet Count Result 261 k/mm3 (150-375); Red Blood Count 4.45 M/mm3 (4.2-5.4); White Blood Count 5.5 K/mm3 (4.5-10.0)
[2024-11-17 13:21] LABS: Alanine Aminotransferase 18 U/L (6-35); Albumin Level 4.0 g/dL (3.5-5.1); Alkaline Phosphatase 94 U/L (38-126); Anion Gap 9 mmol/L (4-12); Aspartate Amino Transferase 39 U/L (14-36); Bilirubin,Total 0.7 mg/dL (0.2-1.3); Blood Urea Nitrogen 23 mg/dL (7-17); Calcium 9.9 mg/dL (8.4-10.2); Carbon Dioxide 25 mmol/L (22-30); Chloride 105 mmol/L (98-107); Cholesterol 206 mg/dL (0-200); Estimated Glomerular Filt Rate 45; Glucose 113 mg/dL (65-110); HDL Direct 39 mg/dL; Potassium 4.2 mmol/L (3.4-5.0); Sodium 139 mmol/L (137-145); Total Protein 8.0 g/dL (6.3-8.2); Triglycerides 169 mg/dL (<150)
[2024-11-17 13:48] LABS: Hemoglobin A1C 6.1 % (<5.7)
[2024-11-17 13:56] LABS: Thyroid Stimulating Hormone Reflex 3.570 uIU/mL (0.465-4.68)
== END 2024-11-17 10:02 | disposition home or self-care (01) ==
PROVIDERS: PCP Family Medicine; Visit Provider Nurse Practitioner Family
DX: E78.5 Hyperlipidemia, unspecified (principal); I10 Essential (primary) hypertension; R73.03 Prediabetes; E55.9 Vitamin D deficiency, unspecified; E03.9 Hypothyroidism, unspecified
CPT/HCPCS: 36415; 80053; 80061; 82306; 83036; 84443; 85025